=== PATIENT | female | born 1960 | race Caucasian/White ===

== ENCOUNTER 2017-06-29 08:59 | Day surgery (SDC) | payer OTHER ==
[2017-06-29] VITALS (13 sets, daily range): BP systolic 112–137; BP diastolic 60–75; PULSE 74–120; RESP 10–22; Ht 157.5 cm; Wt 83.8 kg
[~2017-06-29] VITALS: Ht 157.5 cm; Wt 83.8 kg
[~2017-06-29 08:59] MED LIST: DEXAMETHASONE 4 MG/ML 1 ML INJ ONE; ONDANSETRON 4 MG INJ ONE; ROCURONIUM 50 MG INJ ONE; SUGAMMADEX SODIUM 200 MG/2 ML VIAL IV ONE
--- NOTE | 2017-06-29 09:41 | RADRPT ---
PROCEDURE: XR Chest. CLINICAL INDICATION: Preop, mastectomy TECHNIQUE: AP view of the chest was obtained. COMPARISON: None. FINDINGS: The cardiomediastinal silhouette is within normal limits. The lungs are clear. No pleural effusion or pneumothorax is identified. Thoracic spondylosis is seen. IMPRESSION: No evidence of active cardiopulmonary disease. RPTAT: VV .Jonnathan Curtis MD, Date Time Electronically viewed and signed by .Jonnathan Curtis MD, on 06/29/2017 09:41 .O/
[2017-06-29] MEDS ORDERED: FENTAnyl 50 MCG/ML VIAL IV PRN ×2 (12:00)
[2017-06-29] MEDS ORDERED: CEFAZOLIN 2 GM/50 ML (PMX) 50 ML IVPB ONE (12:00)
[2017-06-29] MEDS ORDERED: hydrALAzine 20 MG INJ IV PRN (12:00)
[2017-06-29] MEDS ORDERED: LABETALOL HCL 20MG INJ IV PRN (12:00)
[2017-06-29] MEDS ORDERED: ONDANSETRON 4 MG INJ IV PRN (12:00)
[2017-06-29] MEDS ORDERED: OXYCODONE/ACETAMINOPHEN (5/325) TAB PO PRN ×2 (12:00)
[2017-06-29] MEDS ORDERED: DIPHENHYDRAMINE 50 MG INJ IV PRN (12:00)
[2017-06-29] MEDS ORDERED: morphine (1 MG/ML) 10ML SYRINGE IV PRN ×3 (12:00)
[2017-06-29] MEDS ORDERED: MIDAZOLAM 1 MG/ML 2 ML INJ IV PRN (12:00)
[2017-06-29] MEDS ORDERED: EPHEDrine SULFATE 50 MG/5 ML SYG IV PRN (12:00)
[2017-06-29] MEDS ORDERED: SOD CHLORIDE 0.9% 1,000 ML IV SCH (12:00)
[2017-06-29] MEDS ORDERED: HYDROmorphONE (0.2 MG/ML) 10ML SYG IV PRN ×3 (12:00)
[2017-06-29] MEDS ORDERED: ATROPINE 1 MG/10 ML SYRINGE IV PRN (12:00)
[2017-06-29] MEDS ORDERED: MEPERIDINE 25 MG INJ IV PRN (12:00)
[2017-06-29 12:02] LABS: BASOPHILS % 0.6 % (0.0-2.0); EOSINOPHILS # 0.1 10^3/ul (0.0-0.5); EOSINOPHILS % 1.8 % (0.0-7.0); HEMATOCRIT 36.7 % (37.0-47.0); HEMOGLOBIN 12.8 g/dl (12.0-16.0); LYMPHOCYTES # 2.2 10^3/ul (0.8-2.9); LYMPHOCYTES % 33.9 % (15.0-51.0); MEAN CORPUSCULAR HEMOGLOBIN 29.6 pg (29.0-33.0); MEAN CORPUSCULAR HGB CONC 34.9 g/dl (32.0-37.0); MEAN CORPUSCULAR VOLUME 84.8 fl (82.0-101.0); MONOCYTE # 0.4 10^3/ul (0.3-0.9); MONOCYTES % 6.3 % (0.0-11.0); NEUTROPHILS % 57.1 % (39.0-77.0); PLATELET COUNT 267 10^3/UL (140-415); RED BLOOD COUNT 4.33 10^6/ul (4.20-5.40); WHITE BLOOD COUNT 6.5 10^3/ul (4.8-10.8)
[2017-06-29] MEDS ORDERED: FENTAnyl 50 MCG/ML VIAL ONE ×2 (12:22)
[2017-06-29] MEDS ORDERED: SUCCINYLCHOLINE CHLORIDE 100 MG/5 ML SYG IV ONE (12:23)
[2017-06-29] MEDS ORDERED: PROPOFOL 20 ML ONE (12:24)
[2017-06-29] MEDS ORDERED: LIDOCAINE 100 MG SYRINGE ONE (12:24)
[2017-06-29 12:51] LABS: ALBUMIN 4.3 g/dl (3.3-4.9); ALBUMIN/GLOBULIN RATIO 1.19; BILIRUBIN,INDIRECT 0.3 mg/dl (0-1.1); BILIRUBIN,TOTAL 0.3 mg/dl (0.2-1.3); TOTAL PROTEIN 7.9 g/dl (6.1-8.1)
[2017-06-29 12:53] LABS: INR 0.91; PROTIME 12.2 Sec (12.2-14.2)
[2017-06-29 12:54] LABS: PARTIAL THROMBOPLASTIN TIME 26.1 Sec (25.0-35.0)
[2017-06-29 13:02] LABS: CREATININE 0.65 mg/dl (0.44-1.00); POTASSIUM 4.1 mmol/L (3.5-5.1)
[2017-06-29] MEDS ORDERED: HYDROCODONE/APAP (7.5/325) TAB PO PRN (14:00)
--- NOTE | 2017-06-29 14:14 | OPR ---
DATE OF OPERATION: 06/29/2017 PREOPERATIVE DIAGNOSIS: Ductal carcinoma right breast. POSTOPERATIVE DIAGNOSIS: Ductal carcinoma right breast. OPERATION PERFORMED: Needle-directed right partial mastectomy. ANESTHESIA: General. ANESTHESIOLOGIST: Dr. Marco Harrington MD SURGEON: Dr. Trivedi. LIBRARIAN HEAD: Dr. Suero. INDICATIONS FOR PROCEDURE: The patient is a 56-year-old female who underwent surveillance mammography and was found to have suspicious microcalcification's in the right breast, in the upper outer quadrant. She underwent a core needle biopsy which confirmed ductal carcinoma in situ. She was counseled as to the need for complete excisional biopsy. She consented and was scheduled for surgery. OPERATIVE PROCEDURE: On the morning of surgery patient presented to [facility] where she underwent localization of the lesion performed by attending radiologist Dr. Tg Ramirez. Subsequently, she was brought to the operating theater, placed under general anesthesia. The right breast was prepped and draped in usual sterile fashion. A curvilinear incision was made in the upper outer quadrant of the right breast, in the region of the previously placed localization wire. Subcutaneous tissue was dissected with cautery. The skin edges were then elevated with skin hooks and wide circumferential dissection of the tissue associated with the wire then took place using cautery. Specimen was then elevated, transected, oriented and sent for radiographic confirmation of capture. Capture was confirmed. It was then sent for permanent pathologic analysis. The wound was irrigated. Minimal bleeding was controlled with cautery and the skin was then reapproximated with a #4-0 Vicryl suture in subcuticular fashion and Dermabond was applied. The patient tolerated procedure well. Estimated blood loss was approximately 20 mL. There were no complications and the patient was transported in stable condition to the recovery room. Dictated By: Bautista Trivedi MD /sandor/nate /Document#: [id number]
--- NOTE | 2017-06-29 17:09 | RADRPT ---
Vent Rate: 73 bpm RR Interval: 0 msec MN Interval: 136 msec QRS Duration: 80 msec QT Interval: 398 msec QTC Interval: 438 msec P-R-T Binford: -12 - 41 - 60 degrees Normal sinus rhythm Normal ECG Electronically Signed By: Marky Camarena [id number]
== END 2017-06-29 15:48 | disposition home or self-care (01) ==
LOC: SDS 08:59
PROVIDERS: ATTEND Surgery Surgical Oncology
DX: D05.11 Intraductal carcinoma in situ of right breast (principal); I10 Essential (primary) hypertension; E11.9 Type 2 diabetes mellitus without complications; E78.5 Hyperlipidemia, unspecified
CPT/HCPCS: 19307; 71010; 80053; 82962; 85025; 85610; 85730; 88307; 93005; J1100; J2001; J2405; J3010; J7999